=== PATIENT | male | born 2000 | race Caucasian/White ===

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

== ENCOUNTER 2020-02-06 20:55 | Emergency (ER) | payer OTHER ==
[~2020-02-06] VITALS: Ht 185.4 cm; Wt 72.6 kg
[~2020-02-06 20:55] MED LIST changes: +CEPHALEXIN500 M1 PO; +SEPTDS PO; +ZANTAC 150150 MG PO
[2020-02-06 21:00] VITALS: BP 98/41
[2020-02-06] MEDS ORDERED: TRAMADOL HCL50 MG PO (23:37)
== END 2020-02-07 00:33 | disposition home or self-care (01) ==
LOC: ED 20:55
DX: S01.81XA Laceration without foreign body of other part of head, initial encounter (principal); S02.2XXA Fracture of nasal bones, initial encounter for closed fracture; J45.909 Unspecified asthma, uncomplicated; Z79.899 Other long term (current) drug therapy; V19.3XXA Pedal cyclist (driver) (passenger) injured in unspecified nontraffic accident, initial encounter; Y93.89 Activity, other specified; Y92.89 Other specified places as the place of occurrence of the external cause; Y99.8 Other external cause status

== ENCOUNTER 2020-04-06 19:53 | Emergency (ER) | payer OTHER ==
[~2020-04-06] VITALS: Ht 185.4 cm; Wt 65.8 kg
[~2020-04-06 19:53] MED LIST changes: +TRAMADOL HCL50 MG PO
[2020-04-06 20:08] VITALS: BP 122/61
[2020-04-06] MEDS ORDERED: ZYRTEC10 M2 PO (20:43)
[2020-04-06] MEDS ORDERED: AMOXICILLIN500 M2 PO (20:43)
[2020-04-06] MEDS ORDERED: FLONASE ALLERG9.9 ML NAS (20:43)
== END 2020-04-06 20:57 | disposition home or self-care (01) ==
LOC: ED 19:53
DX: J32.9 Chronic sinusitis, unspecified (principal)

== ENCOUNTER 2020-05-16 19:32 | Emergency (ER) | payer OTHER ==
[~2020-05-16] VITALS: Ht 185.4 cm; Wt 72.6 kg
[~2020-05-16 19:32] MED LIST changes: +AMOXICILLIN500 M2 PO; +FLONASE ALLERG9.9 ML NAS; +ZYRTEC10 M2 PO
[2020-05-16 19:40] VITALS: BP 117/69
[2020-05-16 20:52] LABS: BILIRUBIN Negative (Negative); BLOOD Negative (Negative); CLARITY Clear (Clear); COLOR Yellow (Yellow); GLUCOSE Negative (Negative); KETONE Negative (Negative); LEUKO ESTERASE Negative (Negative); NITRITE Negative (Negative); SPECIFIC GRAVITY 1.015 (1.001-1.030)
[2020-05-16 21:04] LABS: WBC 0-2 wbc/hpf (0-5)
== END 2020-05-16 22:11 | disposition home or self-care (01) ==
LOC: ED 19:32
PROVIDERS: Nurse Practitioner Family
DX: S39.012A Strain of muscle, fascia and tendon of lower back, initial encounter (principal); S80.11XA Contusion of right lower leg, initial encounter; S70.01XA Contusion of right hip, initial encounter; V86.99XA Unspecified occupant of other special all-terrain or other off-road motor vehicle injured in nontraffic accident, initial encounter; Y93.89 Activity, other specified; Y92.828 Other wilderness area as the place of occurrence of the external cause; Y99.8 Other external cause status

== ENCOUNTER 2020-10-25 21:19 | Emergency (ER) | payer OTHER ==
[~2020-10-25] VITALS: Ht 185.4 cm; Wt 59.0 kg
[2020-10-25 21:26] VITALS: BP 121/56
== END 2020-10-25 23:53 | disposition home or self-care (01) ==
LOC: ED 21:19
DX: R51.9 Headache, unspecified (principal); R11.2 Nausea with vomiting, unspecified; Z79.899 Other long term (current) drug therapy; K21.9 Gastro-esophageal reflux disease without esophagitis

== ENCOUNTER 2021-07-23 16:16 | Emergency (ER) | payer OTHER ==
[~2021-07-23] VITALS: Wt 81.6 kg
[2021-07-23 16:20] VITALS: BP 135/67
== END 2021-07-23 17:38 | disposition left against medical advice (07) ==
LOC: ED 16:16
DX: Z53.21 Procedure and treatment not carried out due to patient leaving prior to being seen by health care provider (principal)

== ENCOUNTER 2022-03-25 00:59 | Emergency (ER) | payer OTHER ==
[~2022-03-25] VITALS: Ht 180.3 cm; Wt 72.6 kg
[2022-03-25 02:00] VITALS: BP 110/60
== END 2022-03-25 03:38 | disposition home or self-care (01) ==
LOC: ED 00:59
DX: S01.01XA Laceration without foreign body of scalp, initial encounter (principal); W22.8XXA Striking against or struck by other objects, initial encounter; Y93.89 Activity, other specified; Y92.89 Other specified places as the place of occurrence of the external cause; Y99.8 Other external cause status

== ENCOUNTER 2022-03-30 14:40 | Emergency (ER) | payer OTHER ==
[~2022-03-30] VITALS: Ht 187.9 cm; Wt 81.6 kg
[2022-03-30 15:34] VITALS: BP 102/60
== END 2022-03-30 15:53 | disposition home or self-care (01) ==
LOC: ED 14:40
DX: S01.01XD Laceration without foreign body of scalp, subsequent encounter (principal); Z79.899 Other long term (current) drug therapy; X58.XXXD Exposure to other specified factors, subsequent encounter

== ENCOUNTER 2022-04-12 18:46 | Emergency (ER) | payer OTHER ==
[~2022-04-12] VITALS: Ht 187.9 cm; Wt 72.6 kg
[2022-04-12 18:49] VITALS: BP 120/64
== END 2022-04-12 20:23 | disposition home or self-care (01) ==
LOC: ED 18:46
DX: J06.9 Acute upper respiratory infection, unspecified (principal); Z20.822 Contact with and (suspected) exposure to COVID-19; Z79.2 Long term (current) use of antibiotics; Z79.899 Other long term (current) drug therapy

== ENCOUNTER 2022-07-02 18:54 | Emergency (ER) | payer OTHER, BC ==
[~2022-07-02] VITALS: Ht 187.9 cm; Wt 63.5 kg
[2022-07-02 18:59] VITALS: BP 125/70
== END 2022-07-02 21:59 | disposition left against medical advice (07) ==
LOC: ED 18:54
DX: K08.89 Other specified disorders of teeth and supporting structures (principal); Z53.21 Procedure and treatment not carried out due to patient leaving prior to being seen by health care provider

== ENCOUNTER 2023-05-13 06:51 | Emergency (ER) | payer OTHER ==
[~2023-05-13] VITALS: Ht 187.9 cm; Wt 72.6 kg
[2023-05-13 07:08] VITALS: BP 134/68
[2023-05-13] MEDS ORDERED: PEPCID20 MG PO (07:18)
[2023-05-13] MEDS ORDERED: ONDANSETRON4 MG SL (07:18)
[2023-05-13 07:27] LABS: BASO % 0.7 % (0.0-1.0); EOS # 0.1 10*3/uL (0.0-0.4); EOS % 1.6 % (1.0-4.0); HEMATOCRIT 44.3 % (42.0-52.0); LYMPH # 1.6 10*3/uL (1.3-4.4); LYMPH % 37.1 % (27.0-41.0); MEAN CORPUSCULAR HGB 30.7 pg (27.0-31.0); MEAN CORPUSCULAR HGB CONC 35.7 g/dl (33.0-37.0); MONO # 0.4 10*3/uL (0.1-1.0); MONO % 9.6 % (3.0-9.0); NEUT # 2.2 10*3/uL (2.3-7.9); PLATELET COUNT AUTOMATED 211 10*3/uL (130-400); RED BLOOD COUNT 5.15 10*6/uL (4.50-5.90); RED CELL DISTRI WIDTH 11.9 % (0-14.5); WHITE BLOOD COUNT 4.4 10*3/uL (4.8-10.8)
[2023-05-13 07:49] LABS: ALKALINE PHOSPHATASE 52 U/L (46-116); CHLORIDE 106 mmol/L (98-107); LIPASE 27 U/L (12-53); POTASSIUM 3.9 mmol/L (3.4-5.1); SGPT/ALT 9 U/L (10-49); TOTAL PROTEIN 6.9 gm/dL (6.0-8.0)
[2023-05-13 07:50] LABS: BUN < 5 mg/dl (9-23)
== END 2023-05-13 08:30 | disposition home or self-care (01) ==
LOC: ED 06:51
PROVIDERS: Emergency Medicine
DX: R10.13 Epigastric pain (principal); K29.70 Gastritis, unspecified, without bleeding; R11.2 Nausea with vomiting, unspecified; J45.909 Unspecified asthma, uncomplicated

== ENCOUNTER 2023-08-26 17:34 | Emergency (ER) | payer OTHER ==
[~2023-08-26] VITALS: Ht 182.8 cm; Wt 61.2 kg
[~2023-08-26 17:34] MED LIST changes: +ONDANSETRON4 MG SL; +PEPCID20 MG PO
[2023-08-26 17:52] VITALS: BP 120/62
[2023-08-26 19:06] LABS: BASO % 0.4 % (0.0-1.0); EOS % 0.8 % (1.0-4.0); HEMATOCRIT 40.7 % (42.0-52.0); LYMPH # 1.2 10*3/uL (1.3-4.4); LYMPH % 24.1 % (27.0-41.0); MEAN CELL VOLUME 86.8 fl (80.0-94.0); MEAN CORPUSCULAR HGB 29.6 pg (27.0-31.0); MEAN CORPUSCULAR HGB CONC 34.2 g/dl (33.0-37.0); MEAN PLATELET VOLUME 11.4 fl (9.6-12.3); MONO # 0.5 10*3/uL (0.1-1.0); MONO % 9.9 % (3.0-9.0); NEUT # 3.2 10*3/uL (2.3-7.9); NEUT % 64.6 % (47.0-73.0); PLATELET COUNT AUTOMATED 174 10*3/uL (130-400); RED BLOOD COUNT 4.69 10*6/uL (4.50-5.90); RED CELL DISTRI WIDTH 12.1 % (0-14.5); WHITE BLOOD COUNT 4.9 10*3/uL (4.8-10.8)
[2023-08-26 19:17] LABS: ACT PARTIAL THROMBO TIME 26.4 SECONDS (20.0-32.1)
[2023-08-26 19:31] LABS: ALKALINE PHOSPHATASE 47 U/L (46-116); BUN 7 mg/dl (9-23); CHLORIDE 109 mmol/L (98-107); POTASSIUM 3.9 mmol/L (3.4-5.1); SGPT/ALT 16 U/L (5-49); TOTAL PROTEIN 6.8 gm/dL (6.0-8.0)
== END 2023-08-26 19:50 | disposition home or self-care (01) ==
LOC: ED 17:34
PROVIDERS: Nurse Practitioner Family
DX: K62.5 Hemorrhage of anus and rectum (principal); R19.7 Diarrhea, unspecified; K21.9 Gastro-esophageal reflux disease without esophagitis; J45.909 Unspecified asthma, uncomplicated

== ENCOUNTER 2024-04-01 13:46 | Emergency (ER) | payer OTHER ==
[~2024-04-01] VITALS: Ht 185.4 cm; Wt 59.0 kg
[2024-04-01 13:53] VITALS: BP 120/54
[2024-04-01] MEDS ORDERED: MG-AL HYDROXIDE/SIMETICONE 30 ML UDC PO STA (14:32)
[2024-04-01] MEDS ORDERED: Lidocaine Hydrochloride 15 ML UDC PO STA (14:32)
[2024-04-01] MEDS ORDERED: Dicyclomine Hydrochloride 20 MG/10 ML OSYR PO STA (14:32)
[2024-04-01] MEDS ORDERED: PROTONIX40 MG PO (15:01)
== END 2024-04-01 15:11 | disposition home or self-care (01) ==
LOC: ED 13:46
DX: K21.9 Gastro-esophageal reflux disease without esophagitis (principal)

== ENCOUNTER 2024-06-03 16:50 | Emergency (ER) | payer OTHER ==
[~2024-06-03] VITALS: Ht 185.4 cm; Wt 77.6 kg
[~2024-06-03 16:50] MED LIST changes: +PROTONIX40 MG PO
[2024-06-03] MEDS ORDERED: VIBRAMYCIN100 MG PO (17:48)
[2024-06-03] MEDS ORDERED: Water, Sterile 10 ML VIAL ONE (18:18)
[2024-06-03 18:23] VITALS: BP 130/56
[2024-06-03 18:34] LABS: BILIRUBIN Negative (Negative); BLOOD Negative (Negative); CLARITY Turbid (Clear); COLOR Yellow (Yellow); GLUCOSE Negative (Negative); KETONE Negative (Negative); LEUKO ESTERASE Negative (Negative); NITRITE Negative (Negative); PH 7.5 (4.5-8.0); SPECIFIC GRAVITY 1.015 (1.001-1.030)
[2024-06-03 18:42] LABS: BACTERIA 2+; CALCIUM OXALATE CRYSTALS Trace
[2024-06-03 18:43] LABS: WBC 0-2 wbc/hpf (0-5)
== END 2024-06-03 18:10 | disposition home or self-care (01) ==
LOC: ED 16:50
PROVIDERS: Physician Assistant Medical
DX: L29.89 Other pruritus (principal); Z20.2 Contact with and (suspected) exposure to infections with a predominantly sexual mode of transmission

== ENCOUNTER 2024-06-05 06:10 | Emergency (ER) | payer OTHER ==
[~2024-06-05] VITALS: Ht 185.4 cm; Wt 63.5 kg
[~2024-06-05 06:10] MED LIST changes: +VIBRAMYCIN100 MG PO
[2024-06-05 06:21] VITALS: BP 139/80
[2024-06-05] MEDS ORDERED: MG-AL HYDROXIDE/SIMETICONE 30 ML UDC PO STA (06:28)
[2024-06-05] MEDS ORDERED: Lidocaine Hydrochloride 15 ML UDC PO STA (06:28)
[2024-06-05] MEDS ORDERED: Dicyclomine Hydrochloride 20 MG/10 ML OSYR PO STA (06:28)
== END 2024-06-05 06:41 | disposition home or self-care (01) ==
LOC: ED 06:10
DX: K20.80 Other esophagitis without bleeding (principal); J45.909 Unspecified asthma, uncomplicated

== ENCOUNTER 2024-06-20 16:53 | Emergency (ER) | payer OTHER ==
[~2024-06-20] VITALS: Ht 185.4 cm; Wt 63.5 kg
[2024-06-20 17:00] VITALS: BP 125/66
[2024-06-20] MEDS ORDERED: AMOX-CLAV 875-1 EACH PO (17:05)
[2024-06-20] MEDS ORDERED: Motrin,Rufen800 MG PO (17:05)
[2024-06-20] MEDS ORDERED: Acetaminophen/Hydrocodone 5 MG/325 MG TABLET PO ONE (17:10)
[2024-06-20] MEDS ORDERED: Amoxicillin/Clavulanate Pota 875 MG TAB PO ONE (17:10)
== END 2024-06-20 17:41 | disposition home or self-care (01) ==
LOC: ED 16:53
DX: S02.5XXA Fracture of tooth (traumatic), initial encounter for closed fracture (principal); K04.7 Periapical abscess without sinus; J45.909 Unspecified asthma, uncomplicated; R22.0 Localized swelling, mass and lump, head; F17.290 Nicotine dependence, other tobacco product, uncomplicated; X58.XXXA Exposure to other specified factors, initial encounter; Y93.89 Activity, other specified; Y92.89 Other specified places as the place of occurrence of the external cause; Y99.8 Other external cause status

== ENCOUNTER 2024-10-04 19:55 | Emergency (ER) | payer OTHER ==
[~2024-10-04] VITALS: Ht 185.4 cm; Wt 63.5 kg
[~2024-10-04 19:55] MED LIST changes: +AMOX-CLAV 875-1 EACH PO; +Motrin,Rufen800 MG PO
[2024-10-04 20:14] VITALS: BP 116/68
[2024-10-04] MEDS ORDERED: Ketorolac Tromethamine 60 MG/2 ML VIAL IM ONE (21:00)
[2024-10-04] MEDS ORDERED: MELOXICAM7.5 MG PO (22:28)
== END 2024-10-04 22:54 | disposition home or self-care (01) ==
LOC: ED 19:55
DX: S93.601A Unspecified sprain of right foot, initial encounter (principal); J45.909 Unspecified asthma, uncomplicated; X50.1XXA Overexertion from prolonged static or awkward postures, initial encounter; Y93.89 Activity, other specified; Y92.89 Other specified places as the place of occurrence of the external cause; Y99.8 Other external cause status

== ENCOUNTER 2024-12-07 22:42 | Emergency (ER) | payer OTHER ==
[~2024-12-07] VITALS: Ht 185.4 cm; Wt 72.6 kg
[~2024-12-07 22:42] MED LIST changes: +MELOXICAM7.5 MG PO
[2024-12-07 22:54] VITALS: BP 130/75
[2024-12-07] MEDS ORDERED: MG-AL HYDROXIDE/SIMETICONE 30 ML UDC PO STA (23:04)
[2024-12-07] MEDS ORDERED: Lidocaine Hydrochloride 15 ML UDC PO STA (23:04)
[2024-12-07] MEDS ORDERED: Dicyclomine Hydrochloride 20 MG/10 ML OSYR PO STA (23:04)
[2024-12-07] MEDS ORDERED: Ketorolac Tromethamine 30 MG/ML VIAL IM ONE (23:05)
[2024-12-07] MEDS ORDERED: OMEPRAZOLE40 MG PO (23:09)
== END 2024-12-07 23:31 | disposition home or self-care (01) ==
LOC: ED 22:42
DX: K21.9 Gastro-esophageal reflux disease without esophagitis (principal); R51.9 Headache, unspecified; J45.909 Unspecified asthma, uncomplicated

== ENCOUNTER 2025-02-19 12:37 | Emergency (ER) | payer OTHER ==
[~2025-02-19] VITALS: Ht 185.4 cm; Wt 63.5 kg
[~2025-02-19 12:37] MED LIST changes: +OMEPRAZOLE40 MG PO
[2025-02-19 12:48] VITALS: BP 135/80
[2025-02-19] MEDS ORDERED: Acetaminophen/Oxycodone 5 MG/325 MG TABLET PO ONE (13:00)
[2025-02-19] MEDS ORDERED: Ondansetron Hydrochloride 4 MG TAB PO ONE (13:05)
[2025-02-19] MEDS ORDERED: Bacitracin Zinc 14 GM TUBE T ONE (13:05)
[2025-02-19] MEDS ORDERED: CEPHALEXIN 500 MG CAP PO ONE (13:05)
[2025-02-19] MEDS ORDERED: SODIUM CHLORIDE 0.9% 1,000 ML IV ONE (13:40)
[2025-02-19] MEDS ORDERED: Ondansetron Hydrochloride 4 MG/2 ML VIAL IV ONE (13:40)
== END 2025-02-19 13:53 | disposition short-term general hospital (02) ==
LOC: ED 12:37
DX: T23.222A Burn of second degree of single left finger (nail) except thumb, initial encounter (principal); J45.909 Unspecified asthma, uncomplicated; Z79.899 Other long term (current) drug therapy; X10.1XXA Contact with hot food, initial encounter; Y93.89 Activity, other specified; Y92.89 Other specified places as the place of occurrence of the external cause; Y99.8 Other external cause status

== ENCOUNTER 2025-02-21 23:25 | Emergency (ER) | payer OTHER ==
[~2025-02-21] VITALS: Ht 185.4 cm; Wt 63.5 kg
[2025-02-21 23:47] VITALS: BP 118/84
[2025-02-21] MEDS ORDERED: Ondansetron Hydrochloride 4 MG TAB SL ONE (23:50)
[2025-02-21] MEDS ORDERED: Acetaminophen/Hydrocodone 5 MG/325 MG TABLET PO ONE (23:50)
== END 2025-02-22 00:35 | disposition home or self-care (01) ==
LOC: ED 23:25
DX: T22.20XD Burn of second degree of shoulder and upper limb, except wrist and hand, unspecified site, subsequent encounter (principal); Z79.899 Other long term (current) drug therapy; X12.XXXD Contact with other hot fluids, subsequent encounter

== ENCOUNTER 2025-05-17 18:24 | Emergency (ER) | payer OTHER ==
[~2025-05-17] VITALS: Ht 185.4 cm; Wt 61.2 kg
[2025-05-17 18:34] VITALS: BP 138/674
[2025-05-17] MEDS ORDERED: Dicyclomine Hydrochloride 20 MG/10 ML OSYR PO STA (19:03)
[2025-05-17] MEDS ORDERED: MG-AL HYDROXIDE/SIMETICONE 30 ML UDC PO STA (19:03)
[2025-05-17] MEDS ORDERED: PROTONIX20 MG PO (19:32)
== END 2025-05-17 19:46 | disposition home or self-care (01) ==
LOC: ED 18:24
DX: K21.9 Gastro-esophageal reflux disease without esophagitis (principal); J45.909 Unspecified asthma, uncomplicated

== ENCOUNTER 2025-05-24 07:56 | Emergency (ER) | payer OTHER ==
[~2025-05-24 07:56] MED LIST changes: +PROTONIX20 MG PO
[2025-05-24 08:03] VITALS: BP 127/78
[2025-05-24] MEDS ORDERED: AMOXICILLIN500 M2 PO (08:13)
== END 2025-05-24 08:16 | disposition home or self-care (01) ==
LOC: ED 07:56
DX: J02.9 Acute pharyngitis, unspecified (principal); R07.89 Other chest pain; J45.909 Unspecified asthma, uncomplicated